=== PATIENT | female | born 1960 | race Caucasian/White ===

== ENCOUNTER 2020-03-06 17:18 | Emergency (ER) | payer OTHER, SELFPAY ==
[2020-03-06 18:22] VITALS: BP 165/96; PULSE 77; RESP 16; TEMP 36.4; O2SAT 97; BMI 28.1
--- NOTE | 2020-03-06 20:20 | ED.EXTPRO ---
HPI - Extremity Problem General Chief complaint: Extremity Problem,Nontraumatic Stated complaint: states left leg swelling and pain after flight Time Seen by Provider: 03/06/20 17:29 Source: patient Mode of arrival: Ambulatory Limitations: no limitations History of Present Illness HPI Narrative: 59-year-old female nonsmoker presents with a chief complaint of a dark purple, painful swollen spot on her leg and had been told that she should be checked for a blood clot. She did recently travel but states she had a sudden onset of a dark purple quarter-sized lesion on her left anterior samuel that happened when lifting a heavy object. She otherwise denies any circumferential leg swelling, redness, warmth, thigh pain, chest pain or shortness of breath. She is not dizzy nor weak or lightheaded. She has had no fever or chills. She is otherwise well and free of complaint MD Complaint: other Onset (ago): day(s) Location: left Radiation: none Relieving factors: nothing Exacerbating factors: nothing Associated symptoms: denies other symptoms Context: recent travel Review of Systems Constitutional Constitutional: Reports system reviewed and no additional complaints, except as documented Eyes Eyes: Denies change in vision ENT Ears, Nose, Mouth, and Throat: Denies vertigo and Denies dizziness Cardiovascular Cardiovascular: Denies chest pain, Denies leg edema and Denies lightheadedness Respiratory Respiratory: Denies cough Gastrointestinal Gastrointestinal: Denies abdominal pain, Denies nausea and Denies vomiting Musculoskeletal Musculoskeletal: Denies joint swelling and Denies radiating pain into limb Integumentary/Breasts Skin/Breast: Reports new lesions and Reports unusual bruising Neurologic Neurologic: Denies vertigo and Denies dizziness Patient History Social History Smoking Status: Never smoker Smoking Status: Never smoker alcohol intake frequency: 0-2 drinks per day Substance Use Type: does not use Exam Narrative Exam Narrative: GEN: AOx3 and in mild distress EYES: Pupils are equal, round, and reactive to light and accommodation. Extraoccular muscles are intact bilaterally. There is no subconjunctival hemorrhage or exudate. CHEST: Lungs are clear to auscultation bilaterally and free of wheezes, rales, or rhonchi. Heart rate is regular rhythm, there are no murmurs, clicks, rubs, or gallops. There is no chest wall tenderness. ABD: Abdomen is soft and nontender. There is no guarding or rebound. Bowel sounds are normal in all 4 quadrants. There is no mass or organomegaly. EXT: No calf pain, negative Landy's/Thompsonssqueeze. No erythema, warmth. Full painless ROM of all extremities with no loss of sensation or strength. SKIN: . Multiple small superficial varicosities. 2cm round, dark purple lesion consistent with extension of varicosity. Otherwise warm, pink, and dry. No erythema or rash Initial Vital Signs Initial Vital Signs: Vital Signs Temperature 97.6 F 03/06/20 18:22 Pulse Rate 77 03/06/20 18:22 Respiratory Rate 16 03/06/20 18:22 Blood Pressure 165/96 H 03/06/20 18: Pulse Oximetry 97 03/06/20 18:22 Course Course Course Narrative: patient concerned for DVT due to lesion on leg. She has no redness, swelling, pain, warmth. Lesion is very superficial and consistent with near rupture of small contained varicosity. Patient given return precautions and has had questions answered to her apparent satisfaction. Vital Signs Vital signs: Vital Signs - 8 hr 03/06/20 18:22 Temperature 97.6 F Pulse Rate 77 Respiratory Rate 16 Blood Pressure 165/96 H Pulse Oximetry 97 Discharge Plan Departure Patient Disposition: Home Clinical Impression: Superficial varicosities Instructions: Treatment of Varicose Veins of the Leg Activity Restrictions/Additional Instructions: *You have been diagnosed with [ superficial left leg varicosity, no evidence of DVT ] *What to do: *Take medications as directed *Follow up with your primary care provider in 2-3 days, call for an appointment. Let them know you were seen in the Emergency Department and that we ask that you be seen in follow up *Return to ER if you should have any new, worsening or concerning symptoms
--- NOTE | 2020-03-06 20:25 | PC.NURSE ---
pt states she took recent trip on plane and when landing her LLE swollen. resolved. has a small superficial skin lesion that had been bleeding earlier in the day and is now controlled and covered with bandaid. NAD
[2020-03-06 20:45] VITALS: BP 158/86; PULSE 74; RESP 16; O2SAT 97
== END 2020-03-06 20:46 | disposition home or self-care (01) ==
PROVIDERS: Emergency Provider Emergency Medicine
DX: I83.892 Varicose veins of left lower extremity with other complications (principal)
CPT/HCPCS: 99281